=== PATIENT | female | born 1970 | race Caucasian/White ===

== ENCOUNTER 2017-02-12 12:02 | Emergency (ER) | payer OTHER ==
[2017-02-12 12:14] VITALS: BP 121/80; PULSE 95; TEMP 98; BMI 33.6
--- NOTE | 2017-02-12 14:35 | PDOC ---
History of Present Illness - General Chief Complaint: Palpitations Stated Complaint: PALPITATIONS Time Seen by Provider: 02/12/17 13:07 History Source: Patient Exam Limitations: Language Barrier (used translation services) - History of Present Illness Initial Comments: 02/12/17 14:29 This 46yo F pt is a poor historian with a significant past medical history of questionable DM, C section and right ovarian cyst removed laproscopically presents due to palpitations and dry mouth. States she moved to the from [place] 4 mo ago. States she has multiple episodes of dry mouth, palpitations and slight SOB at night and twice during the day for the past 4 months. States it began after she took one anti-allergy pill 4 months ago, which she never re-took after the first pill - does not know its name. States drinking water helps with her symptoms. States she also has back pain from a fall 9 months ago, nausea, urinary urgency, dizziness, and slight memory loss over the past few months. She denies CP, vomiting, dysuria, abdominal pain, or MILLAN right now or during these events. Denies any tobacco, alcohol or illicit drug use. Presenting Symptoms: Other (palpitation & dry mouth) Timing/Duration: reports: intermittent Severity/Quality: reports: mild Prior Chest Pain/Cardiac Workup: reports: No prior chest pain, No prior cardiac workup Modifying Factors: improves with: lying down Past History - Travel Traveled outside of the country in the last 30 days: No Close contact w/someone who was outside of country & ill: No - Past Medical History Allergies/Adverse Reactions: Allergies Allergy/AdvReac Type Severity Reaction Status Date / Time No Known Allergies Allergy Verified 02/12/17 12:06 Home Medications: Ambulatory Orders NK [No Known Home Medication] 02/12/17 Anemia: No Asthma: No Cancer: No Cardiac Disorders: No Hx Myocardial Infarction: No CVA: No COPD: No CHF: No HTN: No Thyroid Disease: Yes (questionable, states she was being worked up for it) Other medical history: denies - Surgical History Other Surgical History: 02/12/17 14:37 C section, rt ovarian cyst laproscopically removed - Immunization History Immunization Up to Date: Yes - Psycho/Social/Smoking Cessation Hx Suicidal Ideation: No Smoking History: Never smoked Information on smoking cessation initiated: No Hx Alcohol Use: No Drug/Substance Use Hx: No Review of Systems - Review of Systems Able to Perform ROS?: Yes Is the patient limited Georgian proficient: Yes Constitutional: Yes: Weakness. No: Chills, Diaphoresis, Fever, Loss of Appetite , Night Sweats HEENTM: No: Eye Pain, Blurred Vision, Tearing, Recent change in vision, Double Vision, Cataracts, Ear Pain, Tinnitus Respiratory: Yes: Shortness of Breath. No: Cough, Orthopnea, Stridor, Wheezing , Productive cough Cardiac (ROS): Yes: Irregular Heart Rate, Lightheadedness, Palpitations. No: Chest Pain, Edema, Syncope, Chest Tightness ABD/GI: Yes: Nausea, Poor Fluid Intake. No: Constipated, Diarrhea, Vomiting, Abdominal cramping : Yes: Frequency, Flank Pain. No: Burning, Dysuria, Discharge, Incontinence Musculoskeletal: Yes: Muscle Pain. No: Joint Pain Integumentary: No: Bruising, Erythema Neurological: No: Headache, Numbness, Paresthesia, Seizure, Tingling Endocrine: Yes: Increased Thirst, Increased Urine All Other Systems: Reviewed and Negative *Physical Exam - Vital Signs Last Vital Signs Temp Pulse Resp BP Pulse Ox 98.0 F 95 H 18 121/80 100 02/12/17 12:08 02/12/17 12:08 02/12/17 12:08 02/12/17 12:08 02/12/17 12:08 - Physical Exam General Appearance: Yes: Appropriately Dressed HEENT: positive: EOMI, VINICIUS, Normal Voice, Symmetrical, TMs Normal, Pharynx Normal. negative: Pale Conjunctivae, Scleral Icterus (R), Scleral Icterus (L), Pharyngeal Erythema Neck: positive: Trachea midline, Normal Thyroid. negative: Lymphadenopathy (R) , Lymphadenopathy (L) Respiratory/Chest: positive: Chest Tender (right lateral chest cavity), Lungs Clear, Normal Breath Sounds. negative: Respiratory Distress, Accessory Muscle Use, Decreased Breath Sounds, Crackles, Rales, Rhonchi, Stridor, Wheezing, Hyperresonant, Dullness Cardiovascular: positive: Regular Rhythm, Regular Rate. negative: Murmur, Diastolic Murmur, Systolic Murmur, Gallop/S3, Gallop/S4, Irregularly Irregular, Irregular Gastrointestinal/Abdominal: positive: Normal Bowel Sounds, Soft. negative: Organomegaly, Increased Bowel Sounds, Decreased BS, Protuberent, Distended, Guarding, Tenderness, Hepatomegaly, Spleenomegaly Musculoskeletal: negative: CVA Tenderness, Decreased Range of Motion Extremity: positive: Normal Capillary Refill, Normal Inspection, Normal Range of Motion, Other (tenderness to palpation over right scapula region. negative drop arm test. no bicipital tenderness. ) Integumentary: positive: Normal Color. negative: Cyanotic, Pale, Cold, Clammy, Diaphoresis Neurologic: positive: grout machine tender II-XII NML intact, Fully Oriented, Alert, Normal Mood/ Affect, Motor Strength 5/5. negative: Facial Droop, Numbness ED Treatment Course - LABORATORY CBC & Chemistry Diagram: 02/12/17 14:32 02/12/17 14:32 - ADDITIONAL ORDERS Additional order review: Laboratory Results 02/12/17 02/12/17 02/12/17 17:00 14:32 14:32 Sodium 137 Potassium 4.7 Chloride 102 Carbon Dioxide 29 Anion Gap 6 L BUN 9 Creatinine 0.6 Random Glucose 73 L Calcium 9.3 Urine Color Straw Urine Appearance Clear Urine pH 8.0 Urine Protein Negative Urine Glucose (UA) Negative Urine Ketones Negative Urine Blood 2+ H Urine Nitrite Negative Urine Bilirubin Negative Urine Urobilinogen Negative Ur Leukocyte Esterase Negative Urine RBC 4 Urine WBC <1 Ur Epithelial Cells Rare Urine Mucus Rare Urine HCG, Qual Negative 02/12/17 14:32 RBC 4.59 MCV 87.4 MCHC 33.6 RDW 14.8 MPV 9.4 Neutrophils % 77.5 Lymphocytes % 15.4 Monocytes % 6.0 Eosinophils % 0.7 Basophils % 0.4 Medical Decision Making - Medical Decision Making 02/12/17 14:44 this 46yo F with a significant PMHx of questionable DM presents due to dry mouth and palpitations. 1 Dehydration vs kidney stone vs UTI -IV fluids -CBC w/ diff, CMP Diabetes mellitus -IV fluids -fingerstick glucose r/o Sjogren syndrome vs DI vs anxiety -will extension course counselor patient to f/u with a PCP for dry mouth symptoms 02/12/17 15:22 *DC/Admit/Observation/Transfer Diagnosis at time of Disposition: Anxiety - Discharge Dispostion Disposition: HOME Condition at time of disposition: Good Admit: No - Patient Instructions Printed Discharge Instructions: DI for Anxiety -- Adult Additional Instructions: Return to us if worse or new symptoms occur
[2017-02-12] MEDS ORDERED: SODIUM CHLORIDE 1,000 ML IV SCH (15:00)
[2017-02-12 15:05] LABS: BASOPHIL 0.4 % (0-2.0); EOSINOPHIL 0.7 % (0-4.5); MCH 29.3 pg (25.7-33.7); MCHC 33.6 g/dl (32.0-36.0); MEAN CELL VOLUME 87.4 fl (80-96); MEAN PLT VOLUME 9.4 fl (7.5-11.1); NEUTROPHILS 77.5 % (42.8-82.8); PLATELET COUNT 288 K/MM3 (134-434); RDW 14.8 % (11.6-15.6); WHITE BLOOD COUNT 11.6 K/mm3 (4.0-10.0)
[2017-02-12 15:06] LABS: URINE APPEARANCE CLEAR; URINE BILIRUBIN NEGATIVE (NEGATIVE); URINE BLOOD 2+ (NEGATIVE); URINE COLOR STRAW; URINE GLUCOSE (UA) NEGATIVE (NEGATIVE); URINE KETONE NEGATIVE (NEGATIVE); URINE LEUK ESTERASE NEGATIVE (NEGATIVE); URINE NITRITE NEGATIVE (NEGATIVE); URINE PROTEIN NEGATIVE (NEGATIVE); URINE UROBILINOGEN NEGATIVE mg/dL (0.2-1.0)
[2017-02-12 15:11] LABS: URINE MUCUS RARE; URINE RBC 4 /hpf (0-3); URINE WBC <1 /hpf (3-5)
[2017-02-12 15:29] LABS: ANION GAP 6 (8-16); CALCIUM 9.3 mg/dL (8.5-10.1); CO2 29 mmol/L (21-32); CREATININE 0.6 mg/dL (0.55-1.02); GLUCOSE,RANDOM 73 mg/dL (74-106)
--- NOTE | 2017-02-13 09:33 | EKG ---
Test Reason : Blood Pressure : / mmHG Vent. Rate : 095 BPM Atrial Rate : 095 BPM P-R Int : 144 ms QRS Dur : 068 ms QT Int : 344 ms P-R-T Axes : 000 041 142 degrees QTc Int : 432 ms NORMAL SINUS RHYTHM INDETERMINATE AXIS LOW VOLTAGE QRS POSSIBLE INFERIOR INFARCT , AGE UNDETERMINED CANNOT RULE OUT ANTERIOR INFARCT , AGE UNDETERMINED ABNORMAL ECG NO PREVIOUS ECGS AVAILABLE Confirmed by JAIME AQUINO MD ([id number]) on 02/13/2017 9:32:39 AM Referred By: Confirmed By:JAIME AQUINO MD
== END 2017-02-12 19:33 | disposition home or self-care (01) ==
LOC: JER 12:02
DX: F41.0 Panic disorder [episodic paroxysmal anxiety] (principal)
CPT/HCPCS: 36415; 80048; 81003; 81015; 84703; 85025; 93005; 93010; 99282-25

== ENCOUNTER 2017-02-25 15:34 | Emergency (ER) | payer OTHER ==
[2017-02-25 15:38] VITALS: BP 116/82; PULSE 69; TEMP 98.5; BMI 30.4
--- NOTE | 2017-02-25 17:02 | PDOC ---
History of Present Illness - General History Source: Patient Exam Limitations: Language Barrier (Aissatou, the technology applications teacher, was utilized as a customer service associate. ) - History of Present Illness Initial Comments: CHIEF COMPLAINT: 46 y/o female with no significant PMH c/o heavy vaginal bleeding. HISTORY OF PRESENT ILLNESS: The patient states her LMP was 01/10/17 and is usually regular. She states her period was late, starting 2 days ago. Today, she started bleeding very heavily, having to wear 2 pads on top of each other and changing it every 4 hours. She went to [facility] who were going to do an endometrial biopsy but couldn't (?) and sent her here. She also has some low back cramping. She denies weakness, dizziness, f/c, n/v/d, CP, palpitations , SOB, abd pain, hematuria, dysuria. She does not think she could be . Vital signs on arrival are within normal limits. REVIEW OF SYSTEMS: GENERAL/CONSTITUTIONAL: No fever/chills. No weakness. No weight change. HEAD, EYES, EARS, NOSE AND THROAT: No change in vision. No ear pain or discharge. No sore throat. CARDIOVASCULAR: No chest pain or shortness of breath. RESPIRATORY: No cough, wheezing, or hemoptysis. GASTROINTESTINAL: No abd pain, nausea, vomiting, diarrhea. GENITOURINARY: No dysuria, frequency, or change in urination. +heavy vaginal bleeding MUSCULOSKELETAL: No joint or muscle swelling or pain. No neck pain. +low back cramping. SKIN: No rash or easy bruising. NEUROLOGIC: No headache, vertigo, loss of consciousness, or loss of sensation. PHYSICAL EXAM: GENERAL: The patient is awake, alert, and fully oriented, in no acute distress. She is very well appearing, ambulatory, in NAD or obvious discomfort. HEAD: Normal with no signs of trauma. ENT: Pupils equal, round and reactive to light, extraocular movements intact, sclera anicteric, conjunctiva clear. Neck supple. LUNGS: Clear to auscultation bilaterally. Normal excursion. No respiratory distress or use of accessory muscles. CV: RRR, S1/S2, no MRG. Cap refill < 2 sec. ABDOMEN: Soft, non-distended, non-tender even to deep palpation, no hepatomegaly or splenomegaly, no masses. VAGINAL: Moderate red blood in vaginal vault. Digital exam reveals CMT but no adnexal tenderness. EXTREMITIES: Normal range of motion, no edema. NEUROLOGICAL: Normal speech, normal gait. CN II-XII grossly intact. PSYCH: Normal mood, normal affect. SKIN: Warm, dry, normal turgor, no rashes or lesions noted. <Juliet Galan - Last Filed: 02/25/17 18:38> <Ruby Carlson - Last Filed: 02/25/17 21:40> - General Chief Complaint: Vaginal Bleeding Stated Complaint: EVALUATION Time Seen by Provider: 02/25/17 17:00 Past History - Past Medical History Anemia: No Asthma: No Cancer: No Cardiac Disorders: No CVA: No COPD: No CHF: No HTN: No Thyroid Disease: No - Immunization History Immunization Up to Date: Yes - Psycho/Social/Smoking Cessation Hx Anxiety: No Suicidal Ideation: No Smoking History: Never smoked Hx Alcohol Use: No Drug/Substance Use Hx: No Substance Use Type: None <Juliet Galan - Last Filed: 02/25/17 18:38> <Ruby Carlson - Last Filed: 02/25/17 21:40> - Past Medical History Allergies/Adverse Reactions: Allergies Allergy/AdvReac Type Severity Reaction Status Date / Time No Known Allergies Allergy Verified 02/25/17 15:38 Home Medications: Ambulatory Orders Aspirin [ASA -] 81 mg PO DAILY 02/25/17 *Physical Exam - Vital Signs Last Vital Signs Temp Pulse Resp BP Pulse Ox 98.5 F 69 20 116/82 100 02/25/17 15:35 02/25/17 15:35 02/25/17 15:35 02/25/17 15:35 02/25/17 15:35 <Juliet Galan - Last Filed: 02/25/17 18:38> - Vital Signs Last Vital Signs Temp Pulse Resp BP Pulse Ox 98.5 F 69 20 116/82 100 02/25/17 15:35 02/25/17 15:35 02/25/17 15:35 02/25/17 15:35 02/25/17 15:35 <Ruby Carlson - Last Filed: 02/25/17 21:40> ED Treatment Course - LABORATORY CBC & Chemistry Diagram: 02/25/17 17:58 02/25/17 17:58 <Juliet Galan - Last Filed: 02/25/17 18:38> - LABORATORY CBC & Chemistry Diagram: 02/25/17 17:58 02/25/17 17:58 - ADDITIONAL ORDERS Additional order review: Laboratory Results 02/25/17 02/25/17 02/25/17 17:58 17:58 17:58 Sodium 138 Potassium 3.8 Chloride 101 Carbon Dioxide 28 Anion Gap 9 BUN 9 Creatinine 0.6 Creat Clearance w eGFR > 60 Random Glucose 92 D Calcium 9.2 Total Bilirubin 0.4 AST 15 ALT 23 Alkaline Phosphatase 94 Total Protein 7.8 Albumin 3.7 Beta HCG, Quant < 1.0 Urine Color Red Urine Appearance Slcloudy Urine pH 7.0 Ur Specific [place] 1.010 Urine Protein 1+ H Urine Glucose (UA) Negative Urine Ketones Negative Urine Blood 3+ H Urine Nitrite Negative Urine Bilirubin Negative Urine Urobilinogen Negative Ur Leukocyte Esterase 1+ H Urine RBC 55 Urine WBC 43 Ur Epithelial Cells Rare Urine Bacteria Rare Urine Mucus Rare Blood Type A POSITIVE Antibody Screen Negative 02/25/17 17:58 RBC 4.42 MCV 86.9 MCHC 32.4 RDW 14.7 MPV 9.2 Neutrophils % 72.6 Lymphocytes % 19.8 D Monocytes % 5.8 Eosinophils % 1.3 D Basophils % 0.5 <Ruby Carlson D - Last Filed: 02/25/17 21:40> Medical Decision Making - Medical Decision Making A/P: 46 y/o female with heavy vaginal bleeding today. Plan is as follows: 1. Labs, including beta HCG 2. UA/culture 3. Ultrasound I am signing this patient out to my colleague: RAGINI Carlson In brief, this patient is being seen in the ED for a chief complaint of: heavy vaginal bleeding I have completed the initial assessment interview note and have ordered: labs, UA I have reviewed the following results: CBC, UA Pending results are: CMP, beta, type and screen Plan for disposition is as follows: Once beta comes back, please order transvaginal ultrasound; reassess after results and dispo <Juliet Galan - Last Filed: 02/25/17 18:38> *DC/Admit/Observation/Transfer <Wohltman,Juliet - Last Filed: 02/25/17 18:38> - Discharge Dispostion Admit: No <Sherin CarlsonJael Claudine - Last Filed: 02/25/17 21:40> Diagnosis at time of Disposition: Vaginal bleeding - Discharge Dispostion Disposition: HOME Condition at time of disposition: Stable - Referrals Referrals: Hazel Eldridge MD [Staff Physician] - - Patient Instructions Printed Discharge Instructions: DI for Vaginal Bleeding Additional Instructions: Seguimiento con jameson ob / ornamental machine operator esta semana. Llame para programar patito shahram. Tambin puede hacer un seguimiento con el Dr. Eldridge (OB / INTERACTIVE DEVELOPER). Si gabbi sntomas empeoran o cualquier preocupacin regresa para patito evaluacin adicional. Motrin o Tylenol para el dolor segn sea necesario. Follow up with your scrap metal burner this week. Call to schedule appointment. You may also follow up with Dr. Eldridge (ANESTHESIOLOGIST ATTENDING). If your symptoms worsen or any concerns return for further evaluation. Motrin or Tylenol for pain as needed. Print Language: TAJIK
--- NOTE | 2017-02-25 17:24 | PDOC ---
*Physical Exam - Vital Signs Last Vital Signs Temp Pulse Resp BP Pulse Ox 98.5 F 69 20 116/82 100 02/25/17 15:35 02/25/17 15:35 02/25/17 15:35 02/25/17 15:35 02/25/17 15:35 - Physical Exam Comments: 02/25/17 17:20 The patient was examined by [EVER Aleman] under my direct supervision. I personally evaluated the patient. I concur with the above findings and the plan of care.
[2017-02-25 18:13] LABS: BASOPHIL 0.5 % (0-2.0); EOSINOPHIL 1.3 % (0-4.5); MCH 28.1 pg (25.7-33.7); MCHC 32.4 g/dl (32.0-36.0); MEAN CELL VOLUME 86.9 fl (80-96); MEAN PLT VOLUME 9.2 fl (7.5-11.1); NEUTROPHILS 72.6 % (42.8-82.8); PLATELET COUNT 299 K/MM3 (134-434); RDW 14.7 % (11.6-15.6); WHITE BLOOD COUNT 13.3 K/mm3 (4.0-10.0)
[2017-02-25 18:16] LABS: URINE APPEARANCE SLCLOUDY; URINE BILIRUBIN NEGATIVE (NEGATIVE); URINE BLOOD 3+ (NEGATIVE); URINE COLOR RED; URINE GLUCOSE (UA) NEGATIVE (NEGATIVE); URINE KETONE NEGATIVE (NEGATIVE); URINE NITRITE NEGATIVE (NEGATIVE); URINE UROBILINOGEN NEGATIVE mg/dL (0.2-1.0)
[2017-02-25 18:33] LABS: URINE LEUK ESTERASE 1+ (NEGATIVE); URINE PROTEIN 1+ (NEGATIVE)
[2017-02-25 18:39] LABS: URINE BACTERIA RARE /hpf (NONE SEEN); URINE MUCUS RARE; URINE RBC 55 /hpf (0-3); URINE WBC 43 /hpf (3-5)
[2017-02-25 18:46] LABS: ALBUMIN 3.7 g/dl (3.4-5.0); ANION GAP 9 (8-16); CALCIUM 9.2 mg/dL (8.5-10.1); CO2 28 mmol/L (21-32); CREATININE 0.6 mg/dL (0.55-1.02); GLUCOSE,RANDOM 92 mg/dL (74-106); SGPT/ALT 23 U/L (12-78)
[2017-02-25 18:56] LABS: ALK PHOS 94 U/L (45-117); BILIRUBIN,TOTAL 0.4 mg/dL (0.2-1.0); SGOT/AST 15 U/L (15-37); TOT PROT 7.8 g/dl (6.4-8.2)
== END 2017-02-25 22:01 | disposition home or self-care (01) ==
LOC: JER 15:34
DX: N93.8 Other specified abnormal uterine and vaginal bleeding (principal)
CPT/HCPCS: 36415; 76830-TC; 80053; 81003; 81015; 84702; 85025; 86850; 86900; 86901; 87086; 99282-25